=== PATIENT | male | born 1985 | race Caucasian/White ===

== ENCOUNTER 2023-10-13 17:46 | Emergency (ER) | payer BC, SELFPAY ==
[2023-10-13 17:47] VITALS: BMI 59.5
[2023-10-13 17:51] VITALS: BP 176/117
[2023-10-13 18:33] VITALS: BP 154/86
[2023-10-13 19:00] VITALS: BP 154/84
--- NOTE | 2023-10-13 19:01 | ED.GENMED ---
History of Present Illness
<Jany English PA-C - Last Filed: 10/14/23 00:32>
General
Chief Complaint: Swelling
Source: patient
Exam Limitations: none
Time Seen by Provider: 10/13/23 18:33
Nursing documentation reviewed up to this point in time: agreed with
Travel History
Have you had any contact with someone who has COVID-19?: No
Do you have any symptoms of coronavirus? Fever > 100 degrees, chills, cough, shortness of breath, sore throat, loss of taste or smell, muscle aches, or headache?: No
History of Present Illness
History of Present Illness:
Patient is a 38-year-old male presenting for evaluation of acute onset left lower extremity redness and swelling. Patient states that he initially noticed a discomfort in the lower leg earlier today when he was getting dressed for work. He noticed
that the lower leg seemed significantly more red and swollen. He went to urgent care for evaluation and was sent to the emergency department.
Of note�patient states that he was sick Wednesday night with fever/chills. He tested negative for COVID twice. He has been all day Wednesday laying in bed. He started feel better and went to work today which was the first time he really looked at his
legs since Wednesday when getting dressed.
Patient does have a history of a superficial blood clot in his right lower leg about 10 years ago after sustaining an injury. He took Coumadin for about 3 months and then stop. Patient is currently not on any blood thinning medications.
Patient denies any chest pain or shortness of breath. Denies any cough. Patient denies any GI symptoms. no urinary symptoms. Patient no longer has fever or chills. No known bug bites or wounds to the left lower leg.
Review of Systems
<Jany English PA-C - Last Filed: 10/14/23 00:32>
Review of Systems
Allergies reviewed?: Yes
All Other Systems: ROS reviewed and negative except as documented in HPI and ROS
Phy Exam
<Jany English PA-C - Last Filed: 10/14/23 00:32>
Physical Exam
Physical Exam:
Vitals: Tachycardic, otherwise vital signs stable
General: Patient is well appearing, no acute distress
Skin: Warm and dry, no rashes or lesions
Head: Normocephalic, atraumatic
Eyes: Sclera nonicteric. EOMs intact. No nystagmus.
Throat: Protecting airway. Uvula midline
Neck: Normal ROM, no cervical spine tenderness, no meningismus
Cardiac: Tachycardic, regular rhythm, no murmurs.
Pulm: Normal respiratory effort, no wheezes, rales, rhonchi heard on exam.
Abdomen: No abdominal tenderness.
Extremities: Significant swelling and erythema of left lower extremity from ankle to knee with associated warmth. Some erythematous streaking noted up to left mid calf. Mild tenderness palpation of left calf. DP pulse palpable.
Neuro: AAOx3. CN II-XII intact. No focal neurologic deficits.
Psychiatric: Normal affect.
Course
<Jany English PA-C - Last Filed: 10/14/23 00:32>
Orders/Labs/Results
Orders:
Orders
10/13/23 18:54
Legs, left US [US Periph Venous LOWER Ext LT] Urgent
Comment:
Reason For Exam: lower extremity redness/swelling
10/13/23 18:55
0.9% Sodium Chloride 1000 ml [Nss] 1,000 ml IV BOLUS
10/13/23 20:11
Basic Metabolic Panel Urgent
Complete Blood Count/With Diff Urgent
Doxycycline [Vibramycin] 100 mg PO NOW STA
Abnormal Lab Results
10/13/23
20:11
WBC 12.9 H 10^3/uL
(4.8-10.8)
RDW 14.6 H %
(11.5-14.5)
Abs Immat Gran (auto) 0.1 H 10^3/uL
(0-0.05)
Absolute Neuts (auto) 10.4 H 10^3/uL
(1.4-6.5)
Absolute Monos (auto) 1.0 H 10^3/uL
(0.1-0.6)
Immature Gran % 0.7 H %
(0-0.5)
Neutrophils % 80.2 H %
(42.2-75.2)
Lymphocytes % 10.4 L %
(20.5-51.1)
Sodium 132 L mmol/L
(135-145)
Chloride 96 L mmol/L
(98-107)
Glucose 107 H mg/dl
(70-99)
10/13/23 20:11
10/13/23 20:11
Vital Signs
Temp: 98.7 F
Initial and Last Documented VS:
Initial Vital Signs
Temp Pulse Resp BP Pulse Ox
97.7 F 120 20 176/117 98
10/13/23 17:51 10/13/23 17:51 10/13/23 17:51 10/13/23 17:51 10/13/23 17:51
Last Documented Vital Signs
Temp Pulse Resp BP Pulse Ox
98.7 F 104 13 172/87 93
10/13/23 21:52 10/13/23 21:45 10/13/23 19:15 10/13/23 21:00 10/13/23 21:45
<Miki Robledo MD - Last Filed: 10/13/23 22:22>
Orders/Labs/Results
Orders:
Orders
10/13/23 18:54
Legs, left US [US Periph Venous LOWER Ext LT] Urgent
Comment:
Reason For Exam: lower extremity redness/swelling
10/13/23 18:55
0.9% Sodium Chloride 1000 ml [Nss] 1,000 ml IV BOLUS
10/13/23 20:11
Basic Metabolic Panel Urgent
Complete Blood Count/With Diff Urgent
Doxycycline [Vibramycin] 100 mg PO NOW STA
Abnormal Lab Results
10/13/23
20:11
WBC 12.9 H 10^3/uL
(4.8-10.8)
RDW 14.6 H %
(11.5-14.5)
Abs Immat Gran (auto) 0.1 H 10^3/uL
(0-0.05)
Absolute Neuts (auto) 10.4 H 10^3/uL
(1.4-6.5)
Absolute Monos (auto) 1.0 H 10^3/uL
(0.1-0.6)
Immature Gran % 0.7 H %
(0-0.5)
Neutrophils % 80.2 H %
(42.2-75.2)
Lymphocytes % 10.4 L %
(20.5-51.1)
Sodium 132 L mmol/L
(135-145)
Chloride 96 L mmol/L
(98-107)
Glucose 107 H mg/dl
(70-99)
10/13/23 20:11
10/13/23 20:11
Vital Signs
Initial and Last Documented VS:
Initial Vital Signs
Temp Pulse Resp BP Pulse Ox
97.7 F 120 20 176/117 98
10/13/23 17:51 10/13/23 17:51 10/13/23 17:51 10/13/23 17:51 10/13/23 17:51
Last Documented Vital Signs
Temp Pulse Resp BP Pulse Ox
98.7 F 104 13 172/87 93
10/13/23 21:52 10/13/23 21:45 10/13/23 19:15 10/13/23 21:00 10/13/23 21:45
<Jany English PA-C - Last Filed: 10/14/23 00:32>
MDM/Problems Addressed
Differential Diagnosis Includes:
Not limited to: Cellulitis, DVT, superficial thrombophlebitis
MDM/Problems Addressed:
38-year-old male presenting for evaluation of left lower extremity redness and swelling with associated discomfort. Onset within the past 24 to 48 hours. No recent trauma. Sent to emergency department from urgent care to rule out blood clot.
Patient is somewhat tachycardic and hypertensive. He is afebrile. Physical exam as documented above. There is significant erythema and edema of left lower extremity with some red streaking moving up left calf. Clinically suspicious for
cellulitis at this time. Given patient was sent to rule out blood clot and he does have history of blood clot�will check ultrasound of left lower extremity. Will check basic labs. IV fluids.
Ultrasound negative for DVT. Labs noted. Mild leukocytosis to 12.9. Otherwise no clinically significant abnormalities.
Patient's heart rate is still mildly tachycardic but did decrease after IV fluids. He is otherwise well-appearing. Feel that he is stable for outpatient antibiotic management of cellulitis. Will give first dose of doxycycline in the emergency
department today. Strict return precautions discussed with patient. He will follow-up with primary care/urgent care in a few days to ensure improving and return to emergency department with any acute worsening or systemic symptoms. Discussed
importance of some protection while taking doxycycline. Patient will follow-up with primary care regarding high blood pressure. Patient comfortable with plan. All questions answered.
Chronic conditions affecting care:
Prior history of DVT
Acute Exacerbation and/or Progression of Chronic Illness:
N/A
<Jany English PA-C - Last Filed: 10/14/23 00:32>
*Radiology
Radiology exam reviewed: radiology read reviewed
*Pulse Oximetry
Patient hypoxic: no
*EKG
Interpreted by ED Provider?: NA
*Calender Machine Operator Interpretation
Rate: tachycardiac
Interpretation: abnormal
Heart Rate: 108
Rhythm: sinus
*Critical Care Note
Total Time (30-74mins, 75-104mins- exclusive of procedures): Not Applicable
ED Attending Note
<Jany English PA-C - Last Filed: 10/14/23 00:32>
-
Portions of this chart may have been created with voice recognition software.� Occasional wrong word or��sound alike� substitutions may have occurred due to the inherent limitations of voice recognition software.
<Miki Robledo MD - Last Filed: 10/13/23 22:22>
ED Attending Note
Patient seen and examined by attending physician: Yes
ED Attending Note:
Pt presents to ED with left lower leg swelling/redness noted this morning with 'discomfort'. Pt states that he had subjective sensation of fever/chills, 2 days prior which has resolved completely. Denies trauma. Denies nausea/vomiting. Denies
previous history of skin infection. However, patient has had history of right LE dvt from trauma. Pt is currently not taking any blood thinning medications.
General: well nourished male, in no acute distress. afebrile. overeweight.
Heent: nc/at. eomi
Abd: soft and nontender.
Neuro: aao x 3. no focal neurological deficit.
Skin: LLE: erythema/swelling noted with erythematous streak upto left medial thigh. no open wound.
Psych: pleasant and cooperative.
US LE: no dvt.
History/exam concerning for LLE cellulitis. Will start doxycycline with sun precautions provided.
Pt also with untreated hypertension, which will require re-evaluation with PMD.
Discharge Plan
Departure
Patient Disposition: Home (Routine Discharge)
Date of Disposition: 10/13/23
Time of Disposition: 22:04
Patient with high blood pressure during this ER visit?: Yes
Condition: Good
Covid-19: Not Applicable
Discharge Problem:
Cellulitis of left lower leg
Instructions: Cellulitis (skin infection) in adults - Discharge instructions
Prescriptions:
New
doxycycline monohydrate 100 mg capsule
100 mg PO BID 7 Days Qty: 14 0RF
Referrals:
NONE,* [Family Provider] - Follow up in 2-3 days
Activity Restrictions/Additional Instructions:
RETURN TO THE EMERGENCY DEPARTMENT WITH ANY HIGH FEVERS, CHILLS, WORSENING IN PAIN, SWELLING, REDNESS, OR WARMTH OF LEFT LOWER LEG, INTRACTABLE NAUSEA/VOMITING, WORSENING IN CURRENT SYMPTOMS, OR ANY OTHER CONCERNS
-As discussed - it is important that you continue to closely monitor your symptoms. You should follow up at a PCP or urgent care in 2-3 days to ensure symptoms are improving
-I have sent a prescription to your pharmacy for an antibiotic. You should take this twice a day for the next 7 days. It is important to complete the full course of this antibiotic. You should be very careful while on this on mom's antibiotic. It
will make you much more susceptible to sunburn.
-Keep your legs elevated as often as possible while you are home.
Interventions
Interventions:
*Risk Screen - Suicide Last Done: 10/13/23 17:51
*General Assessment Last Done: 10/13/23 17:51
*Neglect/Abuse Screening Last Done: 10/13/23 17:51
ED- Fall Risk Assessment Last Done: 10/13/23 18:39
*Nursing Disposition Last Done: 10/13/23 22:22
ED- Cardiac Assessment Last Done: 10/13/23 18:39
ED- Pulmonary Assessment Last Done: 10/13/23 18:39
ED-Skin Assessment Last Done: 10/13/23 18:39
Discharge Date and Time
Discharge Date/Time: 10/13/23 22:22
Print Language: SAUDI ARABIAN
[2023-10-13] MEDS: NSS 1000 IV (20:13)
[2023-10-13 20:14] VITALS: BP 138/104
[2023-10-13 20:21] LABS: % Basophils 0.5 % (0-2); % Eosinophils 0.6 % (0-6); % Immature Granulocytes 0.7 % (0-0.5); % Lymphocytes 10.4 % (20.5-51.1); % Monocytes 7.6 % (1.7-9.3); % Neutrophils 80.2 % (42.2-75.2); Absolute Basophils 0.1 10^3/uL (0-0.2); Absolute Eosinophils 0.1 10^3/uL (0-0.7); Absolute Immature Granulocytes 0.1 10^3/uL (0-0.05); Absolute Lymphocytes 1.3 10^3/uL (1.2-3.4); Absolute Neutrophils 10.4 10^3/uL (1.4-6.5); Hematocrit 40.2 % (39.0-52.0); Hemoglobin 13.6 g/dL (13.0-18.0); Mean Corp Hgb Conc. 33.8 g/dL (33.0-37.0); Mean Corpuscular Hgb 28.8 pg (27.0-31.0); Mean Platelet Volume 8.9 fL (7.4-10.4); Nucleated Red Blood Cells % 0 % (-); Platelet Count 219 10^3/uL (130-400); Red Blood Cell Count 4.73 10^6/uL (4.70-6.10); Red Cell Dist. Width 14.6 % (11.5-14.5); White Blood Cell Count 12.9 10^3/uL (4.8-10.8)
[2023-10-13] MEDS: VIBRAMYCIN 100 MG PO (20:22)
[2023-10-13 20:35] LABS: Blood Urea Nitrogen 10 mg/dl (9-20); Calcium 8.9 mg/dl (8.4-10.2); Carbon Dioxide 23 mmol/L (22-30); Chloride 96 mmol/L (98-107); Estimated Creatinine Clearance > 125 ml/min; Glucose 107 mg/dl (70-99); Potassium 3.5 mmol/L (3.5-5.1); Sodium 132 mmol/L (135-145); eGFR > 60.00
[2023-10-13 21:00] VITALS: BP 172/87
== END 2023-10-13 22:22 | disposition home or self-care (01) ==
LOC: EMR 17:46
PROVIDERS: Physician Assistant; EMERGENCY PHYSICIAN Emergency Medicine
DX: L03.116 Cellulitis of left lower limb (principal); I10 Essential (primary) hypertension
CPT/HCPCS: 99284; 96360; 80048; 85025; 93971